=== PATIENT | male | born 1950 | race Caucasian/White ===

== ENCOUNTER 2017-07-21 14:38 | Emergency (ER) | payer MEDICARE, BC ==
[~2017-07-21] VITALS: Ht 185.4 cm; Wt 127.3 kg
[2017-07-21 14:42] VITALS: TEMP 98.2
[2017-07-21] MEDS ORDERED: HYZAAR 25 MG-101 TAB PO (14:45)
[2017-07-21] MEDS ORDERED: ZYLOPRIM 300MG300 MG PO (14:45)
[2017-07-21] MEDS ORDERED: FLOMAX 0.40.4 MG/CAP PO (14:45)
[2017-07-21] MEDS ORDERED: CIPRO 500MG TA500 MG PO (14:46)
[2017-07-21] MEDS ORDERED: CEPHALEXIN500 M1 PO (16:06)
[2017-07-21] MEDS ORDERED: BACTRIM DS 8001 TAB PO (16:06)
[2017-07-21 16:19] VITALS: BP 105/74; PULSE 84
== END 2017-07-21 16:19 | disposition home or self-care (01) ==
LOC: COL.ER 14:38
DX: L03.116 Cellulitis of left lower limb (principal); I10 Essential (primary) hypertension; Z96.653 Presence of artificial knee joint, bilateral; Z90.89 Acquired absence of other organs